=== PATIENT | male | born 1980 | race Caucasian/White ===

== ENCOUNTER 2021-10-16 07:15 | Outpatient (REF) | payer MEDICARE, MEDICAID, SELFPAY ==
--- NOTE | ~2021-10-16 | XR_ITS ---
EXAMINATION: XR knee LT 2V, XR knee standing BI CLINICAL INFORMATION: Reason for Exam M25.569 - Pain in unspecified knee COMPARISON: None available at the time of this dictation. TECHNIQUE: Bilateral frontal standing, left lateral and patella sunrise view. FINDINGS: BONES: No fracture or dislocation is present. JOINTS: Mild narrowing of medial joint spaces suggest mild DJD. There is no joint effusion. No significant osteophytes. SOFT TISSUE: Normal XR/XR knee standing BI IMPRESSION: Mild DJD. Bone alignments are satisfactory. No joint effusion.
--- NOTE | ~2021-10-16 | XR_ITS ---
EXAMINATION: XR knee LT 2V, XR knee standing BI CLINICAL INFORMATION: Reason for Exam M25.569 - Pain in unspecified knee COMPARISON: None available at the time of this dictation. TECHNIQUE: Bilateral frontal standing, left lateral and patella sunrise view. FINDINGS: BONES: No fracture or dislocation is present. JOINTS: Mild narrowing of medial joint spaces suggest mild DJD. There is no joint effusion. No significant osteophytes. SOFT TISSUE: Normal XR/XR knee LT 2V IMPRESSION: Mild DJD. Bone alignments are satisfactory. No joint effusion.
== END 2021-10-16 07:16 | disposition home or self-care (01) ==
LOC: HO.HOSX 07:15
PROVIDERS: Visit Provider Physician Assistant
DX: M23.92 Unspecified internal derangement of left knee (principal)
CPT/HCPCS: 73560; 73565; 99202

== ENCOUNTER 2022-08-13 01:43 | Emergency (ER) | payer MEDICARE, MEDICAID, SELFPAY ==
--- NOTE | ~2022-08-13 | US_ITS ---
EXAMINATION: US VENOUS ULTRASOUND WITH DOPPLER LOWER EXTREMITY, LEFT CLINICAL INFORMATION: Left calf pain, recent trip COMPARISON: None TECHNIQUE: Ultrasound of the deep veins is performed from the hip to the calf with compression sonography and color and pulse Doppler assessment. Spectral analysis with color-flow imaging is performed. FINDINGS: There is normal venous compression and respiratory variation and augmented flow. The visualized common femoral vein, superficial femoral vein, profunda femoral vein, popliteal vein, and the trifurcation region shows no evidence of deep venous thrombosis. There is no significant popliteal fossa cyst. If the patient's symptoms persist, followup ultrasound in 5 days 7 days might be of value to exclude proximal propagation from a non-visualized calf vein. US/US venous duplex LE IMPRESSION: No DVT demonstrated in the left lower extremity.
[2022-08-13 01:57] VITALS: BP 149/100; PULSE 88; RESP 16; TEMP 36.5; O2SAT 98; BMI 27.8
--- NOTE | 2022-08-13 02:15 | ED_ITS ---
HPI - Extremity Problem General Chief complaint: Extremity Problem Stated complaint: leg pain Time Seen by Provider: 08/13/22 02:14 Source: patient Mode of arrival: ambulatory Limitations: no limitations History of Present Illness HPI Narrative: Patient comes to the emergency room complaining of 5 days of worsening left lower extremity/calf pain, questionable mild swelling. Patient states that he recently flew from [place] to [place]. Patient denies any fever or chills. Patient denies any history of DVTs, currently not on blood thinners. Right lower extremity within normal limits. Patient denies any history of trauma. Related Data Home Medications Medication Instructions Recorded Confirmed clonazepam 0.25 mg disintegrating 0.25 mg PO DAILY 10/16/21 tablet fluoxetine 40 mg capsule 40 mg PO DAILY 10/16/21 hydroxyzine pamoate 25 mg capsule 25 mg PO BID PRN 10/16/21 losartan 100 mg tablet 100 mg PO DAILY 10/16/21 oxcarbazepine 600 mg tablet 600 mg PO BID 10/16/21 Previous Rx's Medication Instructions Recorded acetaminophen 500 mg tablet 500 mg PO Q6H PRN fever or pain 08/13/22 #14 tabs cyclobenzaprine 5 mg tablet 5 mg PO TID PRN muscle spasm #10 08/13/22 tabs ibuprofen 600 mg tablet 600 mg PO Q8H PRN fever or pain 08/13/22 #14 tabs Allergies Allergy/AdvReac Type Severity Reaction Status Date / Time No Known Allergies Allergy Verified 08/13/22 02:01 [No Known Allergies*] Review of Systems Review of Systems: Constitutional : No Weight loss, No Fever, No Chills, No Night Sweats, No Fatigue, No Malaise ENT/Mouth : No Hearing loss, No Ear Pain, No Nasal Congestion, No Sinus Pain, No Hoarseness, No sore throat, No Rhinorrhea, No Swallowing Difficulty Eyes: No Eye Pain, No Swelling, No Redness, No Foreign Body, No Discharge, No Vision Changes Cardiovascular : No Chest Pain, No SOB, No Dyspnea on Exertion, No Orthopnea, No Edema, No Palpitations Respiratory : No Cough, No Sputum, No Wheezing, No Smoke Exposure, No Dyspnea Gastrointestinal : No Nausea, No Vomiting, No Diarrhea, No Constipation, No abdominal Pain, No Hematochezia, No Melena Genitourinary : no irregular bleeding, No Dysuria, No Urinary Frequency, No Hematuria, No Urinary Incontinence, No Urgency, No Flank Pain, No Urinary Flow Changes, No Hesitancy Musculoskeletal : No joint pain, complaining of left calf pain for 5 days Skin : No Skin Lesions, No rash Neuro : No Weakness, No Numbness, No Paresthesias, No Loss of Consciousness, No Dizziness, No Headache Psych : No Anxiety/Panic, No Depression, No SI/HI/AH/VH, No Social Issues, Heme/Lymph: No Bruising, No Bleeding,No Lymphadenopathy Endocrine : No Polyuria, No Polydipsia, No Temperature Intolerance [facility] Past Medical History Medical History (Updated 08/13/22 @ 03:11 by Neha Holden MD) Anxiety Hyperlipidemia Hypertension Surgical History History of inguinal hernia repair Social History Social History (Updated 10/16/21 @ 14:26 by Peng Soto) Alcohol intake: current Alcohol intake frequency: a few times a week Smoked in Last 30 Days: No Use of substances other than those prescribed or required for medical reasons: No Advance Directives: No Advance Directives Information Provided: Yes Current occupational status: disabled Current occupation: Lt handed Physical Exam Vital Signs: Vital Signs: Last Vital Signs Temp 98 F 08/13/22 02:16 Pulse 76 08/13/22 02:16 Resp 20 08/13/22 02:16 BP 137/98 H 08/13/22 02:16 Pulse Ox 98 08/13/22 02:16 O2 Del Method 08/13/22 02:16 BMI result Body Mass Index 27.8 Const: Other: Appearance: Alert. Oriented X3. No acute distress. Eyes: Pupils equal, round and reactive to light. ENT: Pharynx normal. Neck: Normal inspection. Neck supple. No lymph nodes noted. No crepitus CVS: Normal heart rate and rhythm. Pulses normal. Normal S1 and S2 Respiratory: No respiratory distress. Breath sounds normal. No Wheezing. No rales Abdomen: Soft and nontender. No rigidity. No distention. Skin: Skin warm and dry. Normal skin color. Normal skin turgor. Extremities: No lower extremity edema. No Lacerations. No Rash, pain to palpation in the left calf, no swelling, no erythema, no additional warmth to touch Neuro: Oriented X 3. No motor deficit. No sensory deficit. Moving all extremities. No slurred speech. CN 2 through 12 grossly intact Psych: calm, cooperative, normal affect Course Course Course Narrative: Likely, patient has musculoskeletal pain. However, patient recently had a flight, pain has been present for 5 days, no history trauma. Ultrasound to rule out DVT pending. Ultrasound is negative for DVT, patient likely having muscle spasms versus mu sculoskeletal pain. Discussed the results with the patient. Patient given 1 dose of p.o. ibuprofen and Tylenol. MDM - Extremity (Nontraumatic) Imaging Data Venous US: Radiologist's impression: FINDINGS: There is normal venous compression and respiratory variation and augmented flow. The visualized common femoral vein, superficial femoral vein, profunda femoral vein, popliteal vein, and the trifurcation region shows no evidence of deep venous thrombosis. There is no significant popliteal fossa cyst. If the patient's symptoms persist, followup ultrasound in 5 days 7 days might be of value to exclude proximal propagation from a non-visualized calf vein. US/US venous duplex LE LT IMPRESSION: No DVT demonstrated in the left lower extremity. Discharge Plan Discharge Clinical Impression: Pain of left calf Patient Disposition: Home, Self-Care Instructions: Musculoskeletal Pain (ED) Additional Instructions: Please follow-up with your primary care physician tomorrow. If you have any worsening or new symptoms, please return to the emergency room or call 911 Prescriptions: New cyclobenzaprine 5 mg tablet 5 mg PO TID PRN (Reason: muscle spasm) Qty: 10 0RF Rx Instructions: Avoid taking medication before driving or going to work acetaminophen 500 mg tablet 500 mg PO Q6H PRN (Reason: fever or pain) Qty: 14 0RF ibuprofen 600 mg tablet 600 mg PO Q8H PRN (Reason: fever or pain) Qty: 14 0RF No Action losartan 100 mg tablet 100 mg PO DAILY hydroxyzine pamoate 25 mg capsule 25 mg PO BID PRN clonazepam 0.25 mg tablet,disintegrating 0.25 mg PO DAILY fluoxetine 40 mg capsule 40 mg PO DAILY oxcarbazepine 600 mg tablet 600 mg PO BID
[2022-08-13 02:16] VITALS: BP 137/98; PULSE 76; RESP 20; TEMP 36.6; O2SAT 98
== END 2022-08-13 03:37 | disposition home or self-care (01) ==
PROVIDERS: Emergency Provider Emergency Medicine; PCP Internal Medicine
DX: M79.605 Pain in left leg (principal); R60.0 Localized edema
CPT/HCPCS: 93971; 99284

== ENCOUNTER 2023-04-17 06:11 | Emergency (ER) | payer MEDICARE, MEDICAID, SELFPAY ==
--- NOTE | ~2023-04-17 | CT_ITS ---
EXAMINATION: CT ABDOMEN AND PELVIS WITHOUT CONTRAST CLINICAL INFORMATION: Left flank pain COMPARISON: 12/01/2016 TECHNIQUE: Multidetector volumetric imaging was performed from the superior aspect of the liver through the pubic symphysis. Sagittal and coronal reformatted images were obtained on the technologist's workstation. This CT examination was performed using dose optimization techniques as appropriate, variously including the following: *Automated exposure control *Adjustment of mA and/or kV according to patient size (this includes techniques or standardized protocols for targeted exams where dose is matched to indication/reason for exam; i.e. extremities or head) *Use of iterative reconstruction technique DLP: 770 mGy-cm FINDINGS: LUNG BASES: The visualized lung bases are unremarkable. LIVER, GALLBLADDER, AND BILIARY TREE: The liver is normal in size, shape, and attenuation. No focal hepatic lesion or biliary ductal dilatation is present. The gallbladder is unremarkable with no evidence of radiopaque gallstones, gallbladder wall thickening, or obvious pericholecystic inflammatory changes. PANCREAS: Unremarkable. SPLEEN: Unremarkable. ADRENAL GLANDS: Unremarkable. KIDNEYS AND URETERS: The kidneys are normal in size, shape, and attenuation. No hydronephrosis, hydroureter, or calculi seen. No perinephric stranding. BLADDER: Unremarkable. GASTROINTESTINAL TRACT: The small and large bowel are unremarkable. The appendix is unremarkable. ABDOMINAL WALL: No significant hernia is appreciated. LYMPH NODES: Normal. VASCULAR: Unremarkable. PELVIC VISCERA: Unremarkable. OSSEOUS STRUCTURES: Unremarkable. CT/CT abdomen pelvis wo IV con IMPRESSION: No significant abnormality. No hydronephrosis, renal or ureteral calculi. Fleischner guidelines were followed.
[2023-04-17 06:28] VITALS: BP 158/103; PULSE 73; RESP 20; TEMP 36.6; O2SAT 96; BMI 28.4
--- NOTE | 2023-04-17 06:37 | ED_ITS ---
HPI - General Adult General Chief complaint: Abdominal Pain Stated complaint: left sided pain Time Seen by Provider: 04/17/23 06:30 Source: patient Mode of arrival: ambulatory Limitations: no limitations History of Present Illness HPI narrative: Patient is a 43 year old assigned male at with a history of HTN, HLD, and anxiety presenting to the emergency department today with left lower quadrant abdominal pain and left sided flank pain. Patient states that over the last week he has had left lower quadrant abdominal pain and left flank pain. 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 Patient denies a ny dizziness, lightheadedness, nausea, vomiting, fever, chills, blurry vision, double vision, loss of vision, chest pain, difficulty breathing, shortness of breath, back pain, night sweats, pain with urination, increased urinary frequency, increased urinary urgency, blood in his urine or stool, syncope or a near syncopal episode, recent trauma or falls, bowel incontinence, bladder incontinence, bowel retention, bladder retention, or any other complaints at this time. Onset (ago): week(s) (1) Location: abdomen and left Severity: mild Severity scale (1-10): 3 Quality: aching and dull Relieving factors: none Exacerbating factors: movement Associated symptoms: denies other symptoms Treatments prior to arrival: none Related Data Home Medications Medication Instructions Recorded Confirmed clonazepam 0.25 mg disintegrating 0.25 mg PO DAILY 10/16/21 tablet fluoxetine 40 mg capsule 40 mg PO DAILY 10/16/21 hydroxyzine pamoate 25 mg capsule 25 mg PO BID PRN 10/16/21 losartan 100 mg tablet 100 mg PO DAILY 10/16/21 oxcarbazepine 600 mg tablet 600 mg PO BID 10/16/21 Previous Rx's Medication Instructions Recorded acetaminophen 500 mg tablet 500 mg PO Q6H PRN fever or pain 08/13/22 #14 tabs cyclobenzaprine 5 mg tablet 5 mg PO TID PRN muscle spasm #10 08/13/22 tabs ibuprofen 600 mg tablet 600 mg PO Q8H PRN fever or pain 08/13/22 #14 tabs cyclobenzaprine 5 mg tablet 5 mg PO TID PRN muscle spasm 7 04/17/23 days #21 tabs Allergies Allergy/AdvReac Type Severity Reaction Status Date / Time No Known Allergies Allergy Verified 08/13/22 02:01 [No Known Allergies*] Review of Systems Constitutional: Constitutional: Reports no additional constitutional complaints, Denies chills, Denies fever(s) and Denies night sweats Eyes: Eyes: Reports no additional eye complaints, Denies blurry vision, Denies change in vision, Denies diplopia, Denies eye discharge, Denies loss of vision and Denies eye pain ENT: Denies dizziness Cardiovascular: Cardiovascular: Reports no additional cardiovascular complaints, Denies chest pain, Denies lightheadedness, Denies Loss of Conscio usness and Denies dyspnea Respiratory: Respiratory: Reports no additional respiratory complaints and Denies dyspnea Gastrointestinal: Gastrointestinal: Reports no additional gastrointestinal c omplaints, Reports abdominal pain, Denies melena, Denies hematochezia, Denies change in bowel habits and Denies change in stool character Genitourinary: Genitourinary: Reports no additional male genitourinary complaints, Denies hematuria, Denies oliguria, Denies difficulty urinating, Denies dysuria, Reports flank pain, Denies urinary frequency, Denies urinary hesitancy, Denies urinary incontinence and Denies urinary urgency Musculoskeletal: Musculoskeletal: Reports no additional musculoskeletal complaints, Denies numbness and Denies tingling Neurologic: Denies dizziness, Denies loss of vision, Denies numbness and Denies tingling Psychiatric: Psychiatric: Reports no additional psychiatric complaints Endocrine: Endocrine: Reports no additional endocrine complaints Hematologic/Lymphatic: Hematologic/Lymphatic: Reports no additional hematologic/lymphatic complaints Allergic/Immunologic: Allergic/Immunologic: Reports no additional allerg ic/immunologic complaints [facility] Past Medical History Attestation statement: The following information was validated with the patient. Source: old records reviewed and nursing notes reviewed Medical History Anxiety Hyperlipidemia Hypertension Surgical History History of inguinal hernia repair Social History Social History Alcohol intake: current Alcohol intake frequency: a few times a week Advance Directives: No Advance Directives Information Provided: No Current occupational status: disabled Current occupation: Lt handed Physical Exam ED Vital Signs: Vital Signs - 24 hr 04/17/23 06:28 04/17/23 08:26 Temperature 97.8 F 97.9 F Pulse Rate 73 65 Respiratory Rate 20 15 Blood Pressure 158/103 H 139/100 H Pulse Oximetry 96 97 Oxygen Delivery Method Room Air Room Air BMI result Body Mass Index 28.4 Const General: cooperative, no acute distress, alert and awake Nutritional Appearance: well nourished Orientation/consciousness: patient oriented x3 Limitations: no limitations HENMT Head: Yes normal to inspection and Yes atraumatic Ears: hearing grossly normal bilaterally and external ears normal General nose exam: Normal external nose present, no nasal discharge noted and no epistaxis Face and sinus: Yes normal facial exam, No abrasion and No laceration Mouth: Normal oral and palatal mucosa present, no drooling and no muffled voice Eyes General: appearance normal, both eyes and all related structures Periorbital: periorbital findings normal Eyelids: Yes eyelids normal Conjunctivae: conjunctivae normal Pupils: Equal, round and reactive pupils present EOM: EOMs intact bilaterally Neck Neck: Yes normal visual inspection, Yes full ROM and Yes no lymphadenopathy Chest Chest palpation & inspection: normal inspection of the chest Resp Effort & Inspection: normal respiratory effort and able to speak in complete sentences GI Inspection: Yes normal to inspection Palpation (GI): Soft to palpation, not firm, nontender and no guarding Neuro General: patient oriented x3 and moves all extremities Cranial nerves: Yes Equal, round and reactive pupils present Cognition (Neuro): normal cognition Motor exam (neuro): 5/5 motor strength present throughout Sensory Exam: Normal double simultaneous stimulation for sensation Coordination: [id number] test normal Extrem General: Yes normal to inspection, Yes full ROM and Yes capillary refill normal Psych Appearance: grossly normal Mental Status: mental status grossly normal Affect: normal affect Attitude: cooperative Thought process: Normal thought process present Thought content: Normal thought content present Insight: Good insight present (Psych) Medical Decision Making Medical Decision Making MDM Narrative: Patient is a 43 year old assigned male at with a history of anxiety, HTN, and HLD presenting to the emergency department today with left lower quadrant abdominal pain and left flank pain. Patient's physical exam was unremarkable. Patient's blood work was unremarkable. Patient's urine showed no acute process. Patient's abdomen/pelvis CT showed no acute process. Patient's clinical presentation is most consistent with a musculoskeletal pain. I explained my physical exam findings as well as all test results to the patient. I answered all questions asked by the patient. I stressed the importance of the patient taking his medication as prescribed. I stressed the importance of the patient following up with his primary care provider. I stressed the importance of the patient returning to the emergency department immediately if his symptoms were to worsen or if he were to develop any dizziness, shortness of breath, difficulty breathing, chest pain, blurry vision, loss of vision, nausea, vomiting, abdominal pain, fever, chills, back pain, or any other complaints. Patient verbalized agreement and understanding with this treatment plan and discharge. Differential Diagnosis Differential Diagnoses: The differential diagnosis associated with the pr esentation includes Musculoskeletal pain Kidney stones Abdominal pain Hernia Diverticulitis Admission/Observation Consideration of admission/observation: Escalation of care including admission/observation considered Patient would have been admitted to the hospital had his work up had any findings where hospital admission was appropriate and his clinical presentation warranted hospital admission. Lab Data MDM Lab Attestation statement: I reviewed the patient's lab results. My interpretation of these studies and their corresponding values is that they are grossly normal. 04/17/23 06:40 04/17/23 06:40 Labs: Lab Results 04/17/23 04/17/23 04/17/23 Range/Units 06:40 06:40 07:48 WBC 6.9 (4.8-10.8) X10*3/uL RBC 4.48 L (4.60-5.80) X10*6/uL Hgb 13.6 L (14.0-18.0) g/dl Hct 40.4 L (42.0-52.0) % MCV 90.2 (80.0-98.0) fL MCH 30.4 (27.0-33.0) pg MCHC 33.7 (31.0-36.0) g/dl RDW 11.9 (11.0-16.0) % Plt Count 553 H (160-400) X10*3/uL MPV 9.0 L (9.4-12.4) fL Absolute Nucleated RBC 0.000 (0.0-0.012) X10*3/uL Nucleated RBC % (auto) 0.0 (0.0-0.2) /100WBC Sodium 143 (135-145) mmol/L Potassium 3.6 (3.3-5.1) mmol/L Chloride 108 (96-108) mmol/L Carbon Dioxide 23 (22-29) mmol/L Anion Gap 16 (12-20) BUN 16 (9-16) mg/dL Creatinine 0.91 (0.5-1.4) mg/dL Estim Creat Clear Calc 119.0 Estimated GFR > 60 Random Glucose 93 (60-115) mg/dL Calcium 9.4 (8.4-10.2) mg/dL Total Bilirubin 0.4 (0.0-1.0) mg/dL AST 23 (5-37) U/L ALT 25 (0-40) U/L Alkaline Phosphatase 46 (39-117) U/L Total Protein 7.4 (6.5-8.0) g/dL Albumin 4.2 (3.5-5.0) g/dL Lipase 13 (8-78) U/L Urine Color Yellow Urine Appearance Cloudy Urine pH 5.5 (5.0-9.0) Ur Specific [place] >= 1.030 H (1.005-1.025) Urine Protein Negative (Neg-Trace) mg/dL Urine Glucose (UA) Negative (Negative) mg/dL Urine Ketones Negative (Negative) mg/dL Urine Blood Negative (Negative) Urine Nitrite Negative (Negative) Ur Leukocyte Esterase Negative (Negative) Independent Interpretation I performed an independent interpretation of an: CT Scan Interpretation: My interpretation is in agreement with the radiologist's impression of this imaging study. ------ EXAMINATION: CT ABDOMEN AND PELVIS WITHOUT CONTRAST? CLINICAL INFORMATION: Left flank pain? COMPARISON: 12/01/2016 TECHNIQUE: Multidetector volumetric imaging was performed from the superior aspect of the liver through the pubic symphysis. Sagittal and coronal reformatted images were obtained on the technologist's workstation.? This CT examination was performed using dose optimization techniques as appropriate, variously including the following: *Automated exposure control *Adjustment of mA and/or kV according to patient size (this includes techniques or standardized protocols for targeted exams where dose is matched to indication/reason for exam; i.e. extremities or head) *Use of iterative reconstruction technique DLP: 770 mGy-cm FINDINGS: LUNG BASES: The visualized lung bases are unremarkable.? LIVER, GALLBLADDER, AND BILIARY TREE: The liver is normal in size, shape, and attenuation. No focal hepatic lesion or biliary ductal dilatation is present. The gallbladder is unremarkable with no evidence of radiopaque gallstones, gallbladder wall thickening, or obvious pericholecystic inflammatory changes.? PANCREAS: Unremarkable.? SPLEEN: Unremarkable.? ADRENAL GLANDS: Unremarkable.? KIDNEYS AND URETERS: The kidneys are normal in size, shape, and attenuation. No hydronephrosis, hydroureter, or calculi seen. No perinephric stranding. ? BLADDER: Unremarkable.? GASTROINTESTINAL TRACT: The small and large bowel are unremarkable. The appendix is unremarkable.? ABDOMINAL WALL: No significant hernia is appreciated.? LYMPH NODES: Normal. VASCULAR: Unremarkable. PELVIC VISCERA: Unremarkable.? OSSEOUS STRUCTURES: Unremarkable.? CT/CT abdomen pelvis wo IV con IMPRESSION: No significant abnormality. No hydronephrosis, renal or ureteral calculi.? ? Fleischner guidelines were followed. Dictated By: Jian Colvin MD Signed By: Electronically signed by Jian Colvin MD 04/17/23 2852 Radiology Impression Discussion of test interpretation with radiology: I have reviewed the radiologist's reading. Prescription Management I considered prescription management with: Pain Medication (patient prescribed pain medication.) Chronic Conditions Patient?s care impacted by: Hypertension Discharge Plan Discharge Clinical Impression: Abdominal pain Patient Disposition: Home, Self-Care Instructions: Abdominal Pain (ED) Additional Instructions: Follow up with your primary care provider. Return to the emergency department immediately if your symptoms worsen or if you develop any dizziness, shortness of breath, difficulty breathing, chest pain, blurry vision, loss of vision, nausea, vomiting, abdominal pain, fever, chills, back pain, or any other complaints. Prescriptions: New cyclobenzaprine 5 mg tablet 5 mg PO TID PRN (Reason: muscle spasm) 7 Days Qty: 21 0RF No Action cyclobenzaprine 5 mg tablet 5 mg PO TID PRN (Reason: muscle spasm) Qty: 10 0RF Rx Instructions: Avoid taking medication before driving or going to work acetaminophen 500 mg tablet 500 mg PO Q6H PRN (Reason: fever or pain) Qty: 14 0RF ibuprofen 600 mg tablet 600 mg PO Q8H PRN (Reason: fever or pain) Qty: 14 0RF losartan 100 mg tablet 100 mg PO DAILY hydroxyzine pamoate 25 mg capsule 25 mg PO BID PRN clonazepam 0.25 mg tablet,disintegrating 0.25 mg PO DAILY fluoxetine 40 mg capsule 40 mg PO DAILY oxcarbazepine 600 mg tablet 600 mg PO BID Referrals: Honey Kaba MD [Primary Care Provider] - Print Language: Vincentian
[2023-04-17 06:51] LABS: Hematocrit 40.4 % (42.0-52.0); Hemoglobin 13.6 g/dl (14.0-18.0); Mean Corpuscular HGB Conc 33.7 g/dl (31.0-36.0); Mean Corpuscular Hemoglobin 30.4 pg (27.0-33.0); Mean Corpuscular Volume 90.2 fL (80.0-98.0); Platelet Count 553 X10*3/uL (160-400); Red Blood Count 4.48 X10*6/uL (4.60-5.80); Red Cell Distribution Width 11.9 % (11.0-16.0); White Blood Count 6.9 X10*3/uL (4.8-10.8)
[2023-04-17 07:07] LABS: Alanine Aminotransferase 25 U/L (0-40); Albumin Level 4.2 g/dL (3.5-5.0); Alkaline Phosphatase 46 U/L (39-117); Anion Gap 16 (12-20); Aspartate Amino Transferase 23 U/L (5-37); Bilirubin Total 0.4 mg/dL (0.0-1.0); Blood Urea Nitrogen 16 mg/dL (9-16); Calcium 9.4 mg/dL (8.4-10.2); Carbon Dioxide 23 mmol/L (22-29); Chloride 108 mmol/L (96-108); Estimated Glomerular Filt Rate > 60; Glucose Random 93 mg/dL (60-115); Lipase 13 U/L (8-78); Potassium 3.6 mmol/L (3.3-5.1); Sodium 143 mmol/L (135-145); Total Protein 7.4 g/dL (6.5-8.0)
[2023-04-17 07:56] LABS: Appearance Urine Cloudy; Color Urine Yellow; Glucose Urine UA Negative (Negative); Leukocyte Esterase Urine Negative (Negative); Nitrite Urine Negative (Negative); PH 5.5 (5.0-9.0); Specific Gravity - Urine >= 1.030 (1.005-1.025); Urine Blood Negative (Negative); Urine Ketones Negative (Negative); Urine Protein Negative (Neg-Trace)
[2023-04-17 08:26] VITALS: BP 139/100; PULSE 65; RESP 15; TEMP 36.6; O2SAT 97
== END 2023-04-17 08:42 | disposition home or self-care (01) ==
PROVIDERS: Emergency Provider Emergency Medicine; PCP Internal Medicine
DX: R10.2 Pelvic and perineal pain (principal); R10.32 Left lower quadrant pain; Z79.899 Other long term (current) drug therapy
CPT/HCPCS: 36415; 74176; 80053; 81003; 83690; 85027; 99283; 99284

== ENCOUNTER 2024-09-14 22:33 | Inpatient (IN) | payer MEDICARE, MEDICAID, SELFPAY ==
--- NOTE | ~2024-09-14 | CT_ITS ---
CLINICAL HISTORY: Upper abdominal pain etiology??? CT abdomen and pelvis with contrast Comparison: CT - CT ABDOMEN PELVIS W IV CON - 09/15/24 00:55 EST Findings: The lung bases are clear. The liver, gallbladder, spleen, pancreas, kidneys and adrenal glands are normal in appearance. No bowel obstruction, pneumoperitoneum, or pneumatosis. The appendix is enlarged and there is periappendiceal stranding. Appendiceal diameter measures 10 mm. No definite evidence of perforation. No abscess. The bones are intact. IMPRESSION: Acute appendicitis without definite evidence of perforation. This document has been electronically signed by: Erickson Davenport MD on 09/15/2024 01:55:11
[2024-09-14 22:37] VITALS: BP 118/70; PULSE 74; RESP 16; TEMP 36.6; O2SAT 95; BMI 29.3
[2024-09-14 23:03] VITALS: BP 119/71; PULSE 59; RESP 18; TEMP 36.6; O2SAT 97
[2024-09-14 23:13] LABS: Basophils Absolute Auto 0.1 X10*3/uL (0.0-0.2); Basophils Percent Auto 0.7 % (0-2); Eosinophils Percent Auto 0.2 % (0-4); Hematocrit 39.2 % (42.0-52.0); Hemoglobin 13.9 g/dl (14.0-18.0); Imm Gran Abs Auto 0.07 X10*3/uL (0.00-0.03); Imm Gran Pct Auto 0.5 % (0.0-0.4); Lymphocytes Absolute Auto 0.7 X10*3/uL (1.2-4.9); MANUAL DIFF FLAG SCAN; Mean Corpuscular HGB Conc 35.5 g/dl (31.0-36.0); Mean Corpuscular Hemoglobin 31.4 pg (27.0-33.0); Mean Corpuscular Volume 88.5 fL (80.0-98.0); Mean Platelet Volume 9.4 fL (9.4-12.4); Monocytes Absolute Auto 0.4 X10*3/uL (0.1-1.2); Monocytes Percent Auto 2.9 % (2-11); Neutrophils Absolute Auto 12.1 x10*3/uL (2.0-8.3); Neutrophils Percent Auto 90.7 % (45-73); Platelet Count 559 X10*3/uL (160-400); Red Blood Count 4.43 X10*6/uL (4.60-5.80); Red Cell Distribution Width 12.5 % (11.0-16.0); SCAN SMEAR FLAG 1; White Blood Count 13.3 X10*3/uL (4.8-10.8)
[2024-09-14 23:23] LABS: SLIDE REVIEW VERIFIED
[2024-09-14 23:35] LABS: Alanine Aminotransferase 24 U/L (0-40); Albumin Level 4.2 g/dL (3.5-5.0); Alkaline Phosphatase 52 U/L (39-117); Anion Gap 17 (12-20); Aspartate Amino Transferase 30 U/L (5-37); Bilirubin Total 0.7 mg/dL (0.0-1.0); Blood Urea Nitrogen 19 mg/dL (9-16); Calcium 9.3 mg/dL (8.4-10.2); Carbon Dioxide 23 mmol/L (22-29); Chloride 106 mmol/L (96-108); Creatinine Clr Calc Pharmacy 123.5; Estimated Glomerular Filt Rate > 60; Glucose Random 137 mg/dL (60-115); Lipase 11 U/L (8-78); Potassium 4.2 mmol/L (3.3-5.1); Sodium 142 mmol/L (135-145); Total Protein 7.7 g/dL (6.5-8.0)
[2024-09-14 23:45] LABS: Appearance Urine Clear; Color Urine Dark Yellow; Glucose Urine UA Negative (Negative); Leukocyte Esterase Urine Negative (Negative); Nitrite Urine Negative (Negative); PH 6.5 (5.0-9.0); Specific Gravity - Urine >= 1.030 (1.005-1.025); Urine Blood Negative (Negative); Urine Ketones Trace mg/dL (Negative); Urine Protein Trace mg/dL (Neg-Trace)
[2024-09-14 23:53] LABS: Influenza A PCR NEGATIVE (Negative); Influenza B PCR NEGATIVE (Negative); Resp Syncy Virus RNA Qual PCR NEGATIVE (Negative); SARS COV2 PCR INHOUSE NEGATIVE (Negative)
[2024-09-15] VITALS (13 sets, daily range): BP systolic 104–126; BP diastolic 64–87; PULSE 76–100; RESP 12–20; TEMP 36.1–37.1; O2SAT 93–96; BMI 31.3
--- NOTE | 2024-09-15 | ED.ABDPAIN ---
HPI - Abdominal Pain General Chief Complaint: Abdominal Pain Stated Complaint: Abdominal pain Time Seen by Provider: 09/14/24 23:30 Source: patient Mode of arrival: ambulatory Limitations: no limitations History of Present Illness ED Provider: HPI narrative: Patient with no significant abdominal complaints in the past does have history of hypotension hyperlipidemia anxiety comes here for acute onset of epigastric pain since 4pm associated with nausea and vomiting vomited about 3 times pain is localized in epigastric area no radiation of the pain had loose bowels earlier today no history of pancreatitis no history of gastritis Related Data Home Medications ?Medication ?Instructions ?Recorded ?Confirmed clonazepam 0.25 mg disintegrating 0.25 mg PO DAILY 10/16/21 tablet fluoxetine 40 mg capsule 40 mg PO DAILY 10/16/21 hydroxyzine pamoate 25 mg capsule 25 mg PO BID PRN 10/16/21 losartan 100 mg tablet 100 mg PO DAILY 10/16/21 oxcarbazepine 600 mg tablet 600 mg PO BID 10/16/21 Previous Rx's ?Medication ?Instructions ?Recorded acetaminophen 500 mg tablet 500 mg PO Q6H PRN fever or pain 08/13/22 #14 tabs cyclobenzaprine 5 mg tablet 5 mg PO TID PRN muscle spasm #10 08/13/22 tabs ibuprofen 600 mg tablet 600 mg PO Q8H PRN fever or pain 08/13/22 #14 tabs cyclobenzaprine 5 mg tablet 5 mg PO TID PRN muscle spasm 7 04/17/23 days #21 tabs Allergies Allergy/AdvReac Type Severity Reaction Status Date / Time No Known Allergies Allergy Verified 09/14/24 22:39 [No Known Allergies*] Review of Systems Review of Systems Yes all other systems are reviewed and are negative PMFSH Past Medical History Medical History Anxiety Hypertension Hyperlipidemia Surgical History History of inguinal hernia repair Social History Social History Alcohol intake: current Alcohol intake frequency: a few times a week Smoked in Last 30 Days: No Use of substances other than those prescribed or required for medical reasons: No Advance Directives: No Current occupational status: disabled Current occupation: Lt handed Physical Exam ED Vital Signs: Vital Signs - 24 hr 09/14/24 22:37 09/14/24 23:03 Temperature 97.9 F 97.9 F Pulse Rate 74 59 Respiratory Rate 16 18 Blood Pressure 118/70 119/71 Pulse Oximetry 95 97 Oxygen Delivery Method Room Air Room Air BMI result Body Mass Index 29.3 Appearance: Alert. Oriented X3. No acute distress. Eyes: No pallor or icterus ENT: Pharynx normal. Oral Mucosa moist Neck: Normal inspection. Neck supple. CVS: Normal heart rate and rhythm. Pulses normal. Respiratory: No respiratory distress. Equal air entry bilateral, no wheezing/rales/rhonchi Abdomen: Soft and tenderness in epigastric area with guarding. Bowel sounds are present, no mass palpable, no CVA tenderness Skin: Skin warm and dry. Normal skin color. Normal skin turgor. Extremities: No lower extremity edema. No calf tenderness Neuro: Oriented X 3. No motor deficit. Medical Decision Making Medical Decision Making MDM Narrative: Patient has epigastric pain with no prior history of gastric ulcer gallstones etiology not clear will get CT scan to rule out gallstones CBD stone or pancreatitis early appendicitis Patient's CT scan showed acute appendicitis uncomplicated patient does not have any tenderness in the right lower quadrant will let Dr. Tse know Differential Diagnosis Differential Diagnoses: The differential diagnosis associated with the presentation includes Pancreatitis/CBD stone/gallstones/gastritis/appendicitis Admission/Observation Consideration of admission/observation: Escalation of care including admission/observation considered Consult Healthcare Provider Management of the patient was discussed with: [employer] Dr. Tse surgeon Lab Data MDM Lab Attestation statement: I reviewed the patient's lab results. 09/14/24 23:00 09/14/24 23:00 Labs: Lab Results 09/14/24 09/14/24 Range/Units 23:00 23:39 WBC 13.3 H (4.8-10.8) X10*3/uL RBC 4.43 L (4.60-5.80) X10*6/uL Hgb 13.9 L (14.0-18.0) g/dl Hct 39.2 L (42.0-52.0) % MCV 88.5 (80.0-98.0) fL MCH 31.4 (27.0-33.0) pg MCHC 35.5 (31.0-36.0) g/dl RDW 12.5 (11.0-16.0) % Plt Count 559 H (160-400) X10*3/uL MPV 9.4 (9.4-12.4) fL Immature Gran % (Auto) 0.5 H (0.0-0.4) % Neut % (Auto) 90.7 H (45-73) % Lymph % (Auto) 5.0 L (20-40) % [place] % (Auto) 2.9 (2-11) % Eos % (Auto) 0.2 (0-4) % Baso % (Auto) 0.7 (0-2) % Lymph # (Auto) 0.7 L (1.2-4.9) X10*3/uL [place] # (Auto) 0.4 (0.1-1.2) X10*3/uL Eos # (Auto) 0.0 (0.0-0.4) X10*3/uL Baso # (Auto) 0.1 (0.0-0.2) X10*3/uL Abs Immat Gran (auto) 0.07 H (0.00-0.03) X10*3/uL Absolute Neuts (auto) 12.1 H (2.0-8.3) x10*3/uL Absolute Nucleated RBC 0.000 (0.0-0.012) X10*3/uL Nucleated RBC % (auto) 0.0 (0.0-0.2) /100WBC Smear Tech's Comments VERIFIED Sodium 142 (135-145) mmol/L Potassium 4.2 (3.3-5.1) mmol/L Chloride 106 (96-108) mmol/L Carbon Dioxide 23 (22-29) mmol/L Anion Gap 17 (12-20) BUN 19 H (9-16) mg/dL Creatinine 0.88 (0.5-1.4) mg/dL Estim Creat Clear Calc 123.5 Estimated GFR > 60 Random Glucose 137 H (60-115) mg/dL Calcium 9.3 (8.4-10.2) mg/dL Total Bilirubin 0.7 (0.0-1.0) mg/dL AST 30 (5-37) U/L ALT 24 (0-40) U/L Alkaline Phosphatase 52 (39-117) U/L Total Protein 7.7 (6.5-8.0) g/dL Albumin 4.2 (3.5-5.0) g/dL Lipase 11 (8-78) U/L Urine Color Dark Yellow Urine Appearance Clear Urine pH 6.5 (5.0-9.0) Ur Specific [place] >= 1.030 H (1.005-1.025) Urine Protein Trace (Neg-Trace) mg/dL Urine Glucose (UA) Negative (Negative) mg/dL Urine Ketones Trace (Negative) mg/dL Urine Blood Negative (Negative) Urine Nitrite Negative (Negative) Ur Leukocyte Esterase Negative (Negative) Influenza Type A (PCR) NEGATIVE (Negative) Influenza Type B (PCR) NEGATIVE (Negative) RSV RNA Qual (PCR) NEGATIVE (Negative) SARS-CoV-2 RNA (RT-PCR) NEGATIVE (Negative) Independent Interpretation I performed an independent interpretation of an: CT Scan Radiology Impression Discussion of test interpretation with radiology: I have reviewed the radiologist's reading. Radiologist Impression: [place] [id number] CT Scan Report Signed with Addenda Patient: Alexander Garay MR#: [id number] : 1980 Acct:[id number] Age/Sex: 44 / M ADM Date: 09/14/24 Loc: .ED Attending Dr: Ordering Physician: David Sterling MD Date of Service: 09/15/24 Procedure(s): CT abdomen pelvis w IV con Accession Number(s): [id number] cc: Honey Kaba MD; David Sterling MD~ Report Number: [id number]: Total DLP = 740.00 mGy-cm ADDENDUMThis document has been electronically signed by: Erickson Davenport MD on 09/15/2024 01:55:11 ADDENDUM: This report was discussed with Hallie Melo on Sep 15, 2024 02:00:00 EST. This document has been electronically signed by: Ashlee Richey on 09/15/2024 02:00:40 Addendum Dictated By: Erickson Davenport MD Addendum Signed By: <Electronically signed by Erickson Davenport MD in [place]> 09/15/24200 Addendum Cosigned By: DD/ /09/154 TD/TT: 09/15/2410/09/199 CLINICAL HISTORY: Upper abdominal pain etiology??? CT abdomen and pelvis with contrast Comparison: CT - CT ABDOMEN PELVIS W IV CON - 09/15/24 00:55 EST Findings: The lung bases are clear. The liver, gallbladder, spleen, pancreas, kidneys and adrenal glands are normal in appearance. No bowel obstruction, pneumoperitoneum, or pneumatosis. The appendix is enlarged and there is periappendiceal stranding. Appendiceal diameter measures 10 mm. No definite evidence of perforation. No abscess. The bones are intact. IMPRESSION: Acute appendicitis without definite evidence of perforation. This document has been electronically signed by: Erickson Davenport MD on 09/15/2024 01:55:11 Medications Administered Discontinued Medications Generic Name Dose Route Start Last Admin Trade Name Freq PRN Reason Stop Dose Admin Al Hydroxide/Mg Hydroxide 30 ml 09/15/24 00:12 09/15/24 00:30 Magnesium Hydrox/Alum Hydrox 30 Ml Oral.Susp PO 09/15/24 00:13 30 ml ONCE ONE Administration Famotidine 20 mg 09/15/24 00:12 09/15/24 00:30 Famotidine/Pf 20 Mg/2 Ml Vial IVPUSH 09/15/24 00:13 20 mg ONCE ONE Administration Sodium Chloride 1,000 mls @ 999 mls/hr 09/15/24 00:05 09/15/24 00:30 Ns IV 09/15/24 01:05 999 mls/hr .Q1H1M ONE Administration Iohexol 85 ml 09/15/24 01:10 09/15/24 01:10 Iohexol 350 Mg/Ml 100 Ml Infus..Btl IV 09/15/24 01:11 85 ml ONCE ONE Administration Morphine Sulfate 4 mg 09/15/24 00:10 09/15/24 00:30 Morphine Sulfate 4 Mg/Ml Cartridge IVPUSH 09/15/24 00:11 4 mg ONCE ONE Administration Protocol Ondansetron HCl 4 mg 09/15/24 00:10 09/15/24 00:30 Ondansetron Hcl 4 Mg/2 Ml Vial IVPUSH 09/15/24 00:11 4 mg ONCE ONE Administration Discharge Plan Discharge Clinical Impression: Acute appendicitis Patient Disposition: Admitted As Inpatient Print Language: Marshallese
[2024-09-15] MEDS: Morphine Sulfate 4 MG/ML CARTRIDGE IVPUSH (00:30)
[2024-09-15] MEDS: Magnesium Hydrox/Alum Hydrox 30 ML ORAL.SUSP PO ×2 (00:30→15:58)
[2024-09-15] MEDS: 0.9 % Sodium Chloride 1,000 ML 999 ML IV (00:30)
[2024-09-15] MEDS: ondansetron HCL 4 MG/2 ML VIAL IVPUSH (00:30)
[2024-09-15] MEDS: Famotidine/PF 20 MG/2 ML VIAL IVPUSH (00:30)
[2024-09-15] MEDS: iohexoL 350 MG/ML 100 ML INFUS..BTL 85 ML IV (01:10)
[2024-09-15] MEDS: Piperacillin Sodium/Tazobactam 3.375 GM in 0.9 % Sodium Chloride 50 ML IV ×4 (02:14→19:34)
--- NOTE | 2024-09-15 03:23 | P.HPGS_ITS ---
History of Present Illness History of Present Illness Date of Service: 09/17/24 Chief complaint: acute appendicitis Narrative: Alexander Garay is a 44 year old male here in the ER for abdominal pain. He says that he had breakfast this morning and right after that, he started to have multiple episodes of loose stools. He says he had some periumbilical pain which persisted throughout the day. He also had some nausea and vomiting. Because of all these symptoms, he came to the emergency room. He denies any fever or chills He has a history of hypertension and anxiety/depression. He has a history of right inguinal hernia repair more than 20 years ago. He also had surgery for gynecomastia around that time as well. Review of Systems Constitutional: Constitutional: Denies chills and Denies fever(s) Cardiovascular: Cardiovascular: Denies chest pain, Denies dyspnea and Denies dyspnea on exertion Respiratory: Respiratory: Denies cough, Denies dyspnea and Denies dyspnea on exertion Gastrointestinal: Gastrointestinal: Denies hematochezia, Denies change in bowel habits and Reports vomiting Genitourinary: Genitourinary: Denies hematuria and Denies difficulty urinating Musculoskeletal: Musculoskeletal: Denies back pain and Denies limited range of motion Neurologic: Denies focal weakness and Denies convulsions Psychiatric: Psychiatric: Reports anxiety, Reports depression and Denies mood swings PMFSH Past Medical History Medical History Anxiety Hypertension Hyperlipidemia Surgical History Surgical History History of inguinal hernia repair Social History Social History Household Members: Spouse Housing: Apartment Alcohol intake: current Alcohol intake frequency: a few times a week Patient Tobacco Use Status: Former Tobacco user Tobacco use type: Cigarette Smoked in Last 30 Days: No Use of substances other than those prescribed or required for medical reasons: No Currently Displaying Signs/Symptoms of Drug Intoxication Withdrawal: No Do you feel safe in your current relationship?: Yes Advance Directives: No Advance Directives Information Provided: No Do you have a plan to hurt others: No Plan Recently lost weight without trying: No Nutrition Risks: No Nutritional Risk service: No Current occupational status: disabled Current occupation: Lt handed Meds Allergies Allergy/AdvReac Type Severity Reaction Status Date / Time No Known Allergies Allergy Verified 09/14/24 22:39 [No Known Allergies*] Home Medications ?Medication ?Instructions ?Recorded ?Confirmed ?Last Taken ?Type fluoxetine 40 mg capsule 40 mg PO DAILY 10/16/21 09/15/24 Unknown History hydroxyzine pamoate 25 mg capsule 25 mg PO TID PRN Anxiety 10/16/21 09/15/24 Unknown History clonazepam 0.5 mg tablet 0.5 mg PO TID PRN Anxiety 09/15/24 09/15/24 Unknown History fenofibrate 160 mg tablet 160 mg PO DAILY 09/15/24 09/15/24 Unknown History losartan 100 1 tab PO DAILY 09/15/24 09/15/24 Unknown History mg-hydrochlorothiazide 12.5 mg tablet Physical Exam Vital Signs: Vital Signs: Last Vital Signs Temp 98.4 F 09/15/24 02:25 Pulse 96 09/15/24 02:25 Resp 18 09/15/24 02:25 BP 125/85 09/15/24 02:25 Pulse Ox 96 09/15/24 02:25 O2 Del Method Room Air 09/15/24 02:25 BMI result Body Mass Index 29.3 Const: General: comfortable and no acute distress Orientation/consciousness: patient oriented x3 Neck: Neck: Yes no lymphadenopathy Resp: Auscultation: clear to auscultation bilaterally Cardio: Rhythm: regular rhythm GI: Other: Mild tenderness on lower abdomen Palpation (GI): Soft to palpation, nontender and no guarding Neuro: General: patient oriented x3 Results Results Labs: Short CBC 09/14/24 Range/Units 23:00 WBC 13.3 H (4.8-10.8) X10*3/uL Hgb 13.9 L (14.0-18.0) g/dl Hct 39.2 L (42.0-52.0) % Plt Count 559 H (160-400) X10*3/uL BMP 09/14/24 23:00 Sodium 142 Potassium 4.2 Chloride 106 Carbon Dioxide 23 BUN 19 H Creatinine 0.88 Calcium 9.3 Liver Function 09/14/24 Range/Units 23:00 Total Bilirubin 0.7 (0.0-1.0) mg/dL AST 30 (5-37) U/L ALT 24 (0-40) U/L Alkaline Phosphatase 52 (39-117) U/L Albumin 4.2 (3.5-5.0) g/dL Urine 09/14/24 Range/Units 23:39 Urine Color Dark Yellow Urine Appearance Clear Urine pH 6.5 (5.0-9.0) Ur Specific [place] >= 1.030 H (1.005-1.025) Urine Protein Trace (Neg-Trace) mg/dL Urine Glucose (UA) Negative (Negative) mg/dL Abdomen CT scan report/results: report reviewed and image reviewed CT scan - pelvis: report reviewed and image reviewed Additional studies: Laboratory Results WBC 13.3 X10*3/uL (4.8-10.8) H 09/14/24 23:00 RBC 4.43 X10*6/uL (4.60-5.80) L 09/14/24 23:00 Hgb 13.9 g/dl (14.0-18.0) L 09/14/24 23:00 Hct 39.2 % (42.0-52.0) L 09/14/24 23:00 MCV 88.5 fL (80.0-98.0) 09/14/24 23:00 MCH 31.4 pg (27.0-33.0) 09/14/24 23:00 MCHC 35.5 g/dl (31.0-36.0) 09/14/24 23:00 RDW 12.5 % (11.0-16.0) 09/14/24 23:00 Plt Count 559 X10*3/uL (160-400) H 09/14/24 23:00 MPV 9.4 fL (9.4-12.4) 09/14/24 23:00 Immature Gran % (Auto) 0.5 % (0.0-0.4) H 09/14/24 23:00 Neut % (Auto) 90.7 % (45-73) H 09/14/24 23:00 Lymph % (Auto) 5.0 % (20-40) L 09/14/24 23:00 [place] % (Auto) 2.9 % (2-11) 09/14/24 23:00 Eos % (Auto) 0.2 % (0-4) 09/14/24 23:00 Baso % (Auto) 0.7 % (0-2) 09/14/24 23:00 Lymph # (Auto) 0.7 X10*3/uL (1.2-4.9) L 09/14/24 23:00 [place] # (Auto) 0.4 X10*3/uL (0.1-1.2) 09/14/24 23:00 Eos # (Auto) 0.0 X10*3/uL (0.0-0.4) 09/14/24 23:00 Baso # (Auto) 0.1 X10*3/uL (0.0-0.2) 09/14/24 23:00 Abs Immat Gran (auto) 0.07 X10*3/uL (0.00-0.03) H 09/14/24 23:00 Absolute Neuts (auto) 12.1 x10*3/uL (2.0-8.3) H 09/14/24 23:00 Absolute Nucleated RBC 0.000 X10*3/uL (0.0-0.012) 09/14/24 23:00 Nucleated RBC % (auto) 0.0 /100WBC (0.0-0.2) 09/14/24 23:00 Smear Tech's Comments VERIFIED 09/14/24 23:00 Sodium 142 mmol/L (135-145) 09/14/24 23:00 Potassium 4.2 mmol/L (3.3-5.1) 09/14/24 23:00 Chloride 106 mmol/L (96-108) 09/14/24 23:00 Carbon Dioxide 23 mmol/L (22-29) 09/14/24 23:00 Anion Gap 17 (12-20) 09/14/24 23:00 BUN 19 mg/dL (9-16) H 09/14/24 23:00 Creatinine 0.88 mg/dL (0.5-1.4) 09/14/24 23:00 Estim Creat Clear Calc 123.5 09/14/24 23:00 Estimated GFR > 60 09/14/24 23:00 Random Glucose 137 mg/dL (60-115) H 09/14/24 23:00 Calcium 9.3 mg/dL (8.4-10.2) 09/14/24 23:00 Total Bilirubin 0.7 mg/dL (0.0-1.0) 09/14/24 23:00 AST 30 U/L (5-37) 09/14/24 23:00 ALT 24 U/L (0-40) 09/14/24 23:00 Alkaline Phosphatase 52 U/L (39-117) 09/14/24 23:00 Total Protein 7.7 g/dL (6.5-8.0) 09/14/24 23:00 Albumin 4.2 g/dL (3.5-5.0) 09/14/24 23:00 Lipase 11 U/L (8-78) 09/14/24 23:00 Urine Color Dark Yellow 09/14/24 23:39 Urine Appearance Clear 09/14/24 23:39 Urine pH 6.5 (5.0-9.0) 09/14/24 23:39 Ur Specific [place] >= 1.030 (1.005-1.025) H 09/14/24 23:39 Urine Protein Trace mg/dL (Neg-Trace) 09/14/24 23:39 Urine Glucose (UA) Negative mg/dL (Negative) 09/14/24 23:39 Urine Ketones Trace mg/dL (Negative) 09/14/24 23:39 Urine Blood Negative (Negative) 09/14/24 23:39 Urine Nitrite Negative (Negative) 09/14/24 23:39 Ur Leukocyte Esterase Negative (Negative) 09/14/24 23:39 Influenza Type A (PCR) NEGATIVE (Negative) 09/14/24 23:00 Influenza Type B (PCR) NEGATIVE (Negative) 09/14/24 23:00 RSV RNA Qual (PCR) NEGATIVE (Negative) 09/14/24 23:00 SARS-CoV-2 RNA (RT-PCR) NEGATIVE (Negative) 09/14/24 23:00 Assessment and Plan (1) Acute appendicitis: Status: Acute He came to the ER overnight because of abdominal pain with nausea and vomiting. I have reviewed his CAT scan. This does show what appears to be an edematous appendix along with franck appendiceal inflammatory changes consistent with acute appendicitis. There were no appendicoliths noted. He has some leukocytosis I explained to him the option of proceeding with appendectomy versus antibiotic treatment. I explained the technique of laparoscopic appendectomy with possible conversion to open. I reviewed the risks of this procedure including but not limited to bleeding, infections, staple line leak, bowel injury, inherent risks of anesthesia, as well as the benefits and alternatives. He said that he would rather go ahead with the appendectomy. He will be admitted and will be started on IV Zosyn. We will proceed with laparoscopic appendectomy later today. His significant other was with him during the discussion. He is overall exam is otherwise benign and he is not toxic looking. Quality Stroke Does the patient have a stroke diagnosis?: No VTE Prior VTE?: No VTE Risk Level:: Medical - moderate - high VTE Device Contraindication: N/A - Device Ordered VTE Drug Contraindication: N/A - Med Ordered Procedures Date of Service Date of Service: 09/17/24
[2024-09-15] MEDS: Lactated Ringers 1,000 ML 80 ML IVCONT ×3 (05:50→23:35)
[2024-09-15] MEDS: Acetaminophen 325 MG TABLET 650 MG PO (05:57)
--- NOTE | 2024-09-15 07:18 | PC.NURSE ---
Report called to PENG Hale in [place]
--- NOTE | 2024-09-15 07:44 | P.PNGS_ITS ---
Subjective Subjective Date of Service: 09/15/24 Interval history: Patient continues to report abdominal discomfort in the right lower quadrant. Nausea is improved. Physical Exam 2 Vital Signs: Vital Signs: Last Vital Signs Temp 97.0 F 09/15/24 04:32 Pulse 76 09/15/24 04:32 Resp 12 09/15/24 04:32 BP 110/74 09/15/24 04:32 Pulse Ox 96 09/15/24 04:32 O2 Del Method Room Air 09/15/24 04:32 BMI result Body Mass Index 29.3 Const: General: no acute distress Nutritional Appearance: well nourished Orientation/consciousness: patient oriented x3 Limitations: no limitations Resp: Effort & Inspection: normal respiratory effort, no audible wheezes, no cough and no respiratory distress GI: Palpation (GI): Soft to palpation, Tenderness to palpation present (GI) in the RLQ and at McBurney's point, no guarding, not rigid and No hepatosplenomegaly present Neuro: General: patient oriented x3 Extrem: General: Yes no clubbing, cyanosis or edema Objective Data Active Medications Acetaminophen (Acetaminophen 325 Mg Tablet) 650 mg PO Q6H PRN PRN Reason: Pain, Mild 1-3,fever,headache Last Admin: 09/15/24 05:57 Dose: 650 mg Documented By: HAFSA Calcium Carbonate (Calcium Carbonate 750 Mg Tab.Chew) 750 mg PO Q4H PRN PRN Reason: Heartburn Clonazepam (Clonazepam 1 Mg Tablet) 1 mg PO TID PRN PRN Reason: anxiety Lactated Ringer's (Lr) 1,000 mls @ 80 mls/hr IVCONT .[id number] AYANA Last Admin: 09/15/24 05:50 Dose: 80 mls/hr Documented By: HAFSA Piperacillin Sod/Tazobactam (Sod 3.375 gm/ Sodium Chloride) 50 mls @ 100 mls/hr IV Q6H AYANA Losartan Potassium (Losartan Potassium 50 Mg Tablet) 100 mg PO DAILY AYANA; Protocol Magnesium Hydroxide (Milk Of Magnesia 30 Ml Oral.Susp) 30 ml PO DAILY PRN PRN Reason: Constipation Melatonin (Melatonin 3 Mg Tablet) 6 mg PO BEDTIME PRN PRN Reason: Insomnia Morphine Sulfate (Morphine Sulfate 4 Mg/Ml Cartridge) 3 mg IVPUSH Q3H PRN; Protocol PRN Reason: pain, severe Ondansetron HCl (Ondansetron Hcl 4 Mg/2 Ml Vial) 4 mg IVPUSH Q6H PRN PRN Reason: nausea Sodium Chloride (0.9 % Sodium Chloride Flush 3 Ml Syringe) 3 ml IVFLUSH QSHIFT [facility] Labs 09/14/24 23:00 09/14/24 23:00 Labs: Laboratory Results - last 24 hr 09/14/24 09/14/24 23:00 23:39 MCV 88.5 MCH 31.4 MCHC 35.5 RDW 12.5 Plt Count 559 H MPV 9.4 Immature Gran % (Auto) 0.5 H Neut % (Auto) 90.7 H Lymph % (Auto) 5.0 L [place] % (Auto) 2.9 Eos % (Auto) 0.2 Baso % (Auto) 0.7 Lymph # (Auto) 0.7 L [place] # (Auto) 0.4 Eos # (Auto) 0.0 Baso # (Auto) 0.1 Abs Immat Gran (auto) 0.07 H Absolute Neuts (auto) 12.1 H Absolute Nucleated RBC 0.000 Nucleated RBC % (auto) 0.0 Smear Tech's Comments VERIFIED Anion Gap 17 Estim Creat Clear Calc 123.5 Estimated GFR > 60 Random Glucose 137 H Calcium 9.3 Total Bilirubin 0.7 AST 30 ALT 24 Alkaline Phosphatase 52 Total Protein 7.7 Albumin 4.2 Lipase 11 Urine Color Dark Yellow Urine Appearance Clear Urine pH 6.5 Ur Specific [place] >= 1.030 H Urine Protein Trace Urine Glucose (UA) Negative Urine Ketones Trace Urine Blood Negative Urine Nitrite Negative Ur Leukocyte Esterase Negative Influenza Type A (PCR) NEGATIVE Influenza Type B (PCR) NEGATIVE RSV RNA Qual (PCR) NEGATIVE SARS-CoV-2 RNA (RT-PCR) NEGATIVE Procedures Date of Service Date of Service: 09/15/24 Progress Note: A&P Assessment and plan (1) Acute appendicitis: Status: Acute Plan 44-year-old male patient presenting with 24 hour history of abdominal pain beginning in the epigastric region and radiating to the right lower quadrant. Workup revealed tenderness in the right lower quadrant. WBC was elevated at 13.3. CT abdomen and pelvis reveals a thickened non perforated appendix consistent with acute appendicitis. I reviewed the procedure, risks and alternatives in detail and he consents to a laparoscopic or possible open appendectomy. He has been added onto the operative schedule for today. He is currently on Zosyn. Time Spent With Patient Time: Total time managing care of this patient today ____ minutes. Quality Stroke Does the patient have a stroke diagnosis?: No VTE Prior VTE?: No VTE Risk Level:: Medical - moderate - high VTE Device Contraindication: N/A - Device Ordered VTE Drug Contraindication: N/A - Med Ordered
--- NOTE | 2024-09-15 08:40 | P.CONAN_ITS ---
HPI - Anesthesia Eval Consult details Narrative: 44 yo M admitted with acute appendicitis PMFSH Active Problems Active Problems: All Active Problems Acute appendicitis (Acute) Hypertension (Acute) Hyperlipidemia (Acute) Anxiety (Acute) Internal derangement of left knee (Acute) Past Medical History Medical History Anxiety Hypertension Hyperlipidemia Family History Family history of problems with anesthesia: No Surgical History Surgical History History of inguinal hernia repair History of Problems with Anesthesia: No Social History Social History Alcohol intake: current Alcohol intake frequency: a few times a week Patient Tobacco Use Status: Never used Tobacco Smoked in Last 30 Days: No Use of substances other than those prescribed or required for medical reasons: No Advance Directives: No Nutrition Risks: No Nutritional Risk Current occupational status: disabled Current occupation: [employer] Allergies Allergy/AdvReac Type Severity Reaction Status Date / Time No Known Allergies Allergy Verified 09/14/24 22:39 [No Known Allergies*] Active Medications: Current Medications Acetaminophen (Acetaminophen 325 Mg Tablet) 650 mg PO Q6H PRN PRN Reason: Pain, Mild 1-3,fever,headache Last Admin: 09/15/24 05:57 Dose: 650 mg Calcium Carbonate (Calcium Carbonate 750 Mg Tab.Chew) 750 mg PO Q4H PRN PRN Reason: Heartburn Clonazepam (Clonazepam 1 Mg Tablet) 1 mg PO TID PRN PRN Reason: anxiety Lactated Ringer's (Lr) 1,000 mls @ 80 mls/hr IVCONT .[id number] [facility] Last Admin: 09/15/24 05:50 Dose: 80 mls/hr Piperacillin Sod/Tazobactam (Sod 3.375 gm/ Sodium Chloride) 50 mls @ 100 mls/hr IV Q6H [facility] Last Infusion: 09/15/24 08:39 Dose: Infused Losartan Potassium (Losartan Potassium 50 Mg Tablet) 100 mg PO DAILY [facility]; Protocol Last Admin: 09/15/24 08:00 Dose: Not Given Magnesium Hydroxide (Milk Of Magnesia 30 Ml Oral.Susp) 30 ml PO DAILY PRN PRN Reason: Constipation Melatonin (Melatonin 3 Mg Tablet) 6 mg PO BEDTIME PRN PRN Reason: Insomnia Morphine Sulfate (Morphine Sulfate 4 Mg/Ml Cartridge) 3 mg IVPUSH Q3H PRN; Protocol PRN Reason: pain, severe Ondansetron HCl (Ondansetron Hcl 4 Mg/2 Ml Vial) 4 mg IVPUSH Q6H PRN PRN Reason: nausea Sodium Chloride (0.9 % Sodium Chloride Flush 3 Ml Syringe) [facility] Last Admin: 09/15/24 07:58 Dose: Not Given Home Medications ?Medication ?Instructions ?Recorded ?Confirmed ?Last Taken ?Type fluoxetine 40 mg capsule 40 mg PO DAILY 10/16/21 09/15/24 Unknown History hydroxyzine pamoate 25 mg capsule 25 mg PO TID PRN Anxiety 10/16/21 09/15/24 Unknown History clonazepam 0.5 mg tablet 0.5 mg PO TID PRN Anxiety 09/15/24 09/15/24 Unknown History fenofibrate 160 mg tablet 160 mg PO DAILY 09/15/24 09/15/24 Unknown History losartan 100 1 tab PO DAILY 09/15/24 09/15/24 Unknown History mg-hydrochlorothiazide 12.5 mg tablet Exam Exam Date and Time: 09/15/24 0850 Height,Weight and Vital Signs: Height 5 ft 11 in Weight 95.3 kg Last Vital Signs Temp 98.7 F 09/15/24 07:54 Pulse 96 09/15/24 07:54 Resp 18 09/15/24 07:54 BP 120/75 09/15/24 07:54 Pulse Ox 96 09/15/24 07:54 O2 Del Method Room Air 09/15/24 07:54 Pertinent Lab Results Pertinent Lab Results: Laboratory Tests 09/14/24 09/14/24 23:00 23:39 WBC 13.3 H RBC 4.43 L Hgb 13.9 L Hct 39.2 L MCV 88.5 MCH 31.4 MCHC 35.5 RDW 12.5 Plt Count 559 H MPV 9.4 Immature Gran % (Auto) 0.5 H Neut % (Auto) 90.7 H Lymph % (Auto) 5.0 L [place] % (Auto) 2.9 Eos % (Auto) 0.2 Baso % (Auto) 0.7 Lymph # (Auto) 0.7 L [place] # (Auto) 0.4 Eos # (Auto) 0.0 Baso # (Auto) 0.1 Abs Immat Gran (auto) 0.07 H Absolute Neuts (auto) 12.1 H Absolute Nucleated RBC 0.000 Nucleated RBC % (auto) 0.0 Smear Tech's Comments VERIFIED Sodium 142 Potassium 4.2 Chloride 106 Carbon Dioxide 23 Anion Gap 17 BUN 19 H Creatinine 0.88 Estim Creat Clear Calc 123.5 Estimated GFR > 60 Random Glucose 137 H Calcium 9.3 Total Bilirubin 0.7 AST 30 ALT 24 Alkaline Phosphatase 52 Total Protein 7.7 Albumin 4.2 Lipase 11 Urine Color Dark Yellow Urine Appearance Clear Urine pH 6.5 Ur Specific [place] >= 1.030 H Urine Protein Trace Urine Glucose (UA) Negative Urine Ketones Trace Urine Blood Negative Urine Nitrite Negative Ur Leukocyte Esterase Negative Influenza Type A (PCR) NEGATIVE Influenza Type B (PCR) NEGATIVE RSV RNA Qual (PCR) NEGATIVE SARS-CoV-2 RNA (RT-PCR) NEGATIVE Airway Mallampati Class: II TM Dist: >3cm Neck ROM: Full Loose/Missing/Broken Teeth: No (patient denies any loose or broken teeth) Heart: S1S2 Lungs: CTAB Assessment and Plan Assessment Anesthesia Assessment: Anesthesia Plan Discussed and Chart Reviewed Final Anesthetic Review Family History of Problems with Anesthesia: No History of Problems with Anesthesia: No NPO: Yes ASA Class: II and Emergency Final Preanesthetic Review: No Changes in Pt Med Stat, Meds/Allgs Chart Reviewed, Consent Obtained/Reviewed and Anes Risks/Benef Reviewed Patient Risk: Low Procedure Risk: Low Anesthetic Plan Anesthetic Plan: GA and Agree w/ Assess. and Plan Disposition: Standard PACU
--- NOTE | 2024-09-15 09:02 | PHA.MEDREC ---
Pharmacy Consult ? Medication Reconciliation Pharmacy has completed the medication reconciliation. Spoke with patients significant other in overflow unit. SO confirmed patient to no longer be on oxcarbazepine, zaleplon, abilify and welbutrin. SO claims patient tries to take very minimal medication due to drowziness.
--- NOTE | 2024-09-15 09:55 | P.OP_ITS ---
Operative Note Operative Note Date of Service: 09/15/24 Narrative: Preoperative diagnosis: Acute appendicitis Postoperative diagnosis: Same Procedure: Laparoscopic appendectomy Surgeon: Kaleb Shepard MD Special Education Resource Room Teacher: None Anesthesia: General endotracheal Indications for procedure: 44-year-old male patient presenting with complaints of abdominal pain beginning in the epigastric region and radiating to the right lower quadrant. Workup revealed an elevated WBC. CT abdomen and pelvis confirmed acute appendicitis. Operative findings: Acute appendicitis without perforation Specimen: Appendix Estimated blood loss: 2 mL Complications: None Procedure details: Patient was brought to the OR and placed in a supine position. After administering general anesthesia the patient's abdomen was prepped with ChloraPrep and draped in a sterile fashion. A surgical time-out was called and consent confirmed. Patient received preoperative antibiotics and Venodyne boots were in place. Local anesthesia consisting of 0.5% Sensorcaine without epinephrine was infiltrated in periumbilical region. A 5 mm incision was made below the umbilicus and carried down through subcutaneous tissue. A Veress needle was then inserted while elevating abdominal cavity with towel clips. After a positive drop test the abdomen was insufflated to a pressure of 15 mm of mercury. The Veress needle was removed and a 5 mm trocar inserted. The camera was then inserted in the abdomen explored. A 2nd 5 mm trocars placed in the lower midline. A 12 mm trocar was then placed in the left lower quadrant. The patient was then placed in a Trendelenburg position and rotated to the left. The appendix was identified in the right lower quadrant and brought up using blunt dissecting clamps. The mesentery of the appendix was then divided using the LigaSure. The appendiceal artery was cauterized and divided using the LigaSure. Dissection was continued down to the base of the cecum. An Endo-ALMA stapler with a purple reload was then used to divide the appendix at the base with the cecum. The appendix was then placed in Endo-Catch bag and brought out through the left lower quadrant incision. The abdomen was then irrigated with saline solution and suctioned dry. Wounds were checked for hemostasis. CO2 was then evacuated from the abdominal cavity and all trocars removed. Fascia was closed in the left lower quadrant incision using a [id number] 0 Polysorb suture. Skin was closed at all incisions using a subcuticular 4-0 Polysorb suture. Steri-Strips 2 x 2 gauze and Tegaderm were then applied. The patient tolerated the procedure well. Sponge, instrument, needle counts reported as correct. The patient was transferred to PACU in stable condition.
[2024-09-15] MEDS: HYDROmorphone HCl 0.5 MG/0.5 ML SYRINGE IVPUSH (10:25)
[2024-09-15] MEDS: oxyCODONE HCl Immed Release 5 MG TABLET PO (12:48)
[2024-09-15] MEDS: Morphine Sulfate 4 MG/ML CARTRIDGE 3 MG IVPUSH (19:34)
[2024-09-16] MEDS: oxyCODONE HCl Immed Release 5 MG TABLET PO ×2 (00:54→07:56)
[2024-09-16] MEDS: Piperacillin Sodium/Tazobactam 3.375 GM in 0.9 % Sodium Chloride 50 ML IV ×2 (00:58→07:57)
[2024-09-16 03:53] VITALS: BP 121/80; PULSE 92; RESP 18; TEMP 36.8; O2SAT 93
[2024-09-16] MEDS: Morphine Sulfate 4 MG/ML CARTRIDGE 3 MG IVPUSH (04:03)
[2024-09-16 07:39] VITALS: BP 141/79; PULSE 78; RESP 17; TEMP 36.2; O2SAT 94
--- NOTE | 2024-09-16 07:47 | PM.PNGS ---
Subjective Subjective Date of Service: 09/16/24 Interval history: Patient reports mainly gas pain today, passing some flatus. Denies nausea or vomiting. He was able to tolerate a diet last evening. Physical Exam Vital Signs: Vital Signs: Last Vital Signs Temp 97.2 F 09/16/24 07:39 Pulse 78 09/16/24 07:39 Resp 17 09/16/24 07:39 BP 141/79 H 09/16/24 07:39 Pulse Ox 94 09/16/24 07:39 O2 Del Method Room Air 09/16/24 07:39 O2 Flow Rate 2 09/15/24 10:41 BMI result Body Mass Index 31.3 Const: General: no acute distress Nutritional Appearance: well nourished Orientation/consciousness: patient oriented x3 Resp: Effort & Inspection: normal respiratory effort GI: Other: Trocar incisions are clean, dry and intact. Skin: Other: Warm, dry, no rashes Neuro: General: patient oriented x3 Extrem: General: No edema Objective Data Active Medications Acetaminophen (Acetaminophen 325 Mg Tablet) 650 mg PO Q6H PRN PRN Reason: Pain, Mild 1-3,fever,headache Last Admin: 09/15/24 05:57 Dose: 650 mg Documented By: HAFSA Al Hydroxide/Mg Hydroxide (Magnesium Hydrox/Alum Hydrox 30 Ml Oral.Susp) 30 ml PO Q4H PRN PRN Reason: Heartburn, gas Last Admin: 09/15/24 15:58 Dose: 30 ml Documented By: ALESHA Calcium Carbonate (Calcium Carbonate 750 Mg Tab.Chew) 750 mg PO Q4H PRN PRN Reason: Heartburn Clonazepam (Clonazepam 1 Mg Tablet) 1 mg PO TID PRN PRN Reason: anxiety Lactated Ringer's (Lr) 1,000 mls @ 80 mls/hr IVCONT .[id number] [facility] Last Admin: 09/16/24 04:31 Dose: Not Given Documented By: HARLEEN Non-Admin Reason: IV Running Piperacillin Sod/Tazobactam (Sod 3.375 gm/ Sodium Chloride) 50 mls @ 100 mls/hr IV Q6H [facility] Last Infusion: 09/16/24 01:28 Dose: Infused Documented By: HARLEEN Losartan Potassium (Losartan Potassium 50 Mg Tablet) 100 mg PO DAILY [facility]; Protocol Last Admin: 09/15/24 08:00 Dose: Not Given Documented By: ALEXIA Non-Admin Reason: NPO Magnesium Hydroxide (Milk Of Magnesia 30 Ml Oral.Susp) 30 ml PO DAILY PRN PRN Reason: Constipation Melatonin (Melatonin 3 Mg Tablet) 6 mg PO BEDTIME PRN PRN Reason: Insomnia Morphine Sulfate (Morphine Sulfate 4 Mg/Ml Cartridge) 3 mg IVPUSH Q3H PRN; Protocol PRN Reason: pain, severe Last Admin: 09/16/24 04:03 Dose: 3 mg Documented By: HARLEEN Ondansetron HCl (Ondansetron Hcl 4 Mg/2 Ml Vial) 4 mg IVPUSH Q6H PRN PRN Reason: nausea Oxycodone HCl (Oxycodone Hcl Immed Release 5 Mg Tablet) 5 mg PO Q4H PRN PRN Reason: Pain, Moderate(Pain Scale 4-6) Last Admin: 09/16/24 00:54 Dose: 5 mg Documented By: HARLEEN Sodium Chloride (0.9 % Sodium Chloride Flush 3 Ml Syringe) 3 ml IVFSH [facility] Last Admin: 09/16/24 00:14 Dose: Not Given Documented By: HARLEEN Non-Admin Reason: IV Running Labs 09/14/24 23:00 09/14/24 23:00 Procedures Date of Service Date of Service: 09/16/24 Progress Note: A&P Assessment and plan (1) Acute appendicitis: Status: Acute Plan Pod 1 following laparoscopic appendectomy for acute appendicitis. He tolerated the procedure well and remains hemodynamically stable. He was able to tolerate a regular diet and ambulate in the hallways. He is ready for discharge to home and should follow up in the office in approximately 1 week. Should avoid lifting greater than 10 lb for 2 weeks. Time Spent With Patient Time: Total time managing care of this patient today ____ minutes. Quality Stroke Does the patient have a stroke diagnosis?: No VTE Prior VTE?: No VTE Risk Level:: Medical - moderate - high VTE Device Contraindication: N/A - Device Ordered VTE Drug Contraindication: N/A - Med Ordered
[2024-09-16] MEDS: Losartan Potassium 50 MG TABLET 100 MG PO (07:56)
[2024-09-16] MEDS: 0.9 % Sodium Chloride Flush 3 ML SYRINGE IVFLUSH (07:56)
--- NOTE | 2024-09-16 08:29 | HO.POSTANES ---
Post Anesthesia Evaluation Post Anesthesia Evaluation Date of Service: 09/16/24 Vital Signs: Vital Signs Temp Pulse Resp BP Pulse Ox O2 Del Method 09/16/24 07:39 97.2 F 78 17 141/79 H 94 Room Air 09/16/24 03:53 98.3 F 92 18 121/80 93 Room Air 09/15/24 23:30 98.0 F 85 18 118/70 95 Room Air Anesthesia: General Endotracheal-GETA Mental Status: Awake Pain Control: Satisfactory Nausea/Vomiting: None Hydration: Adequate Anesthesia-Related Issues: No Anes. Related Issues
--- NOTE | 2024-09-16 09:24 | MHC.CM.PN ---
IMM delivered. Patient from home w/ . Functionally independent. Denies use of DME or services. PCP Honey Kaba MD No HCP. CM provided education and offered assistance. Patient declined. DP: Medically cleared for dc home self care. at bedside to transport. RN aware.
--- NOTE | 2024-09-16 12:32 | P.DS_ITS ---
DS: Providers Provider Date of Service: 09/16/24 Date of admission: 09/15/24 10:03 Date of discharge: 09/16/24 Primary care physician: Honey Kaba MD Attending physician on admission: Wallace Tse Attending physician on discharge: Kaleb Shepard DS: Diagnosis Discharge Diagnosis (1) Acute appendicitis: Status: Acute DS: Summary Hospital Course Hospital Course: HPI AT ADMISSION: Alexander Garay is a 44 year old male here in the ER for abdominal pain. He says that he had breakfast this morning and right after that, he started to have multiple episodes of loose stools. He says he had some periumbilical pain which persisted throughout the day. He also had some nausea and vomiting. Because of all these symptoms, he came to the emergency room. He denies any fever or chills. He has a history of hypertension and anxiety/depression. He has a history of right inguinal hernia repair more than 20 years ago. He also had surgery for gynecomastia around that time as well. CAT scan shows what appears to be an edematous appendix along with franck appendiceal inflammatory changes consistent with acute appendicitis, no appendicoliths noted. Mild leukocytosis. HOSPITAL COURSE: The patient was admitted to the surgical service for further treatment of the acute appendicitis. He was started on IVF and IV zosyn. He elected to proceed with laparoscopic appendectomy. He was added onto the OR schedule for that day. On 09/15/24, a laparoscopic appendectomy was performed by Dr. Shepard without complication. The patient tolerated the procedure well. He had an uncomplicated recovery course. On POD #1, he felt well and was tolerating a solid diet without nausea or vomiting, had good pain control and was ambulating without difficulty. He was hemodynamically stable. His abdomen was benign with appropriate post op tenderness and clean and intact dressings. He felt ready for discharge. He was discharged to home on 09/16/24 in stable condition. He is to follow up in the office in 1 week. Status at Discharge Functional status at discharge: independent ambulation Overall status at discharge: patient is progressing back to baseline Time Attestation Discharge Coordination Time (in mins): 30 Quality: Safe Use of Opioids Does Pt have an Active Cancer Diagnosis on the Problem List?: No Quality: Stroke Does the patient have a stroke diagnosis?: No Physical Exam Vital Signs: Vital Signs: Last Vital Signs Temp 97.2 F 09/16/24 07:39 Pulse 78 09/16/24 07:39 Resp 17 09/16/24 07:39 BP 141/79 H 09/16/24 07:39 Pulse Ox 94 09/16/24 07:39 O2 Del Method Room Air 09/16/24 07:39 O2 Flow Rate 2 09/15/24 10:41 BMI result Body Mass Index 31.3 Const: General: comfortable, no acute distress and alert Orientation/consciousness: patient oriented x3 Resp: Effort & Inspection: normal respiratory effort GI: Inspection: No distended and Yes incision (dressings clean and intact ) Palpation (GI): Soft to palpation, Tenderness to palpation present (GI) (mild incisional) and no guarding Skin: General skin exam: no rashes or lesions noted Neuro: General: patient oriented x3 and moves all extremities DS: Data Data Completed and Pending Pending studies at discharge: Pending at discharge 09/15/24 09:33 Surgical [PTH] Routine Discharge Plan Discharge Anticipated Discharge Date/Time: 09/16/24 07:41 Patient Disposition: Home, Self-Care Discharge Diagnosis: acute appendicitis Referrals: Honey Kaba MD [Primary Care Provider] - 1 Week Kaleb Shepard MD [Physician] - 1 Week Discharge Medications: New docusate sodium [Colace] 100 mg capsule 100 mg PO BID Qty: 30 0RF oxycodone 5 mg tablet 5 mg PO Q4H PRN (Reason: pain (scale score 7-10)) Qty: 20 0RF Rx Instructions: Partial Fill upon patient request. Continued acetaminophen 500 mg tablet 500 mg PO Q6H PRN (Reason: fever or pain) Qty: 14 0RF clonazepam 0.5 mg tablet 0.5 mg PO TID PRN (Reason: Anxiety) fenofibrate 160 mg tablet 160 mg PO DAILY losartan-hydrochlorothiazide 100-12.5 mg tablet 1 tab PO DAILY hydroxyzine pamoate 25 mg capsule 25 mg PO TID PRN (Reason: Anxiety) fluoxetine 40 mg capsule 40 mg PO DAILY Discharge Orders: Discharge Order (Routine); Ordered 09/16/24 Ordered By: Kaleb Shepard Diet: Advance to usual diet Activity on Discharge: No heavy lifting Stand Alone Forms: Patient Portal Discharge page Print Language: Mauritian Activity Restrictions/Additional Instructions: If the incision area is tender, you may apply an ice pack for short intervals (No more than 20 minutes on, followed by at least 20 minutes off). Do not apply heat. Do not use creams, lotions, or topical antibiotics. Ok to shower. Remove clear dressings 3 days following your procedure. You have steri strips (small white cloth strips) covering your incision- these will fall off ~1 week. No heavy lifting (>10lbs) or strenuous activity! Take Tylenol Extra-strength 1-2 tabs every 6 hours for the first day, then as needed. Oxycodone every 6-8 hours as needed for pain. Colace 100 mg every day as needed for constipation. Follow up in office with Dr. Shepard in 1 week. ([phone]) Call Your Doctor If: -Your temperature exceeds 101.5? F -You experience excessive pain or swelling -You have an unexpected reaction to medication -You have excessive bleeding -You experience continued vomiting/nausea -Your incision begins to separate -Your incision shows signs of infection such as increased redness, swelling, excessive pain, drainage (light blood or clear fluid is normal) or heat Care Plan Goals: Return to baseline health and resume normal activities following recovery period. Health Concerns: Abdominal pain right lower quadrant Plan of Treatment: Laparoscopic appendectomy on 09/15/2024 Assessment: Acute appendicitis without perforation Discharge Date/Time: 09/16/24 09:55
== END 2024-09-16 09:55 | disposition home or self-care (01) | DRG 399 ==
LOC: HO.ED 09-15 02:01 → HO.EDOVER 09-15 07:27 → HO.SSS 09-15 07:30 → HO.S3 09-15 10:03
PROVIDERS: Surgery; Admitting Provider Surgery; Emergency Provider Internal Medicine; PCP Internal Medicine; Visit Provider Surgery
PROC: 0DTJ4ZZ Resection of Appendix, Percutaneous Endoscopic Approach (ICD-10-PCS; CPT 44970; principal; 2024-09-15 08:30)
DX: K35.80 Unspecified acute appendicitis (principal); E78.5 Hyperlipidemia, unspecified; Z20.822 Contact with and (suspected) exposure to COVID-19; Z87.891 Personal history of nicotine dependence; Z79.899 Other long term (current) drug therapy
CPT/HCPCS: 0241U; 36415; 74177; 80053; 81003; 83690; 85025; 88304; 99285; J0330; J1171; J2003; J2270; J2405; J2543; J2704; J2795; J3010; J7120; Q9967

== ENCOUNTER → 2024-09-15 00:10 | Outpatient (BNV) | payer MEDICARE, MEDICAID, SELFPAY | PROVIDERS: Emergency Provider Internal Medicine; PCP Internal Medicine; Visit Provider Radiology Diagnostic Radiology | DX: K35.890 Other acute appendicitis without perforation or gangrene (principal) | CPT/HCPCS: 74177 ==

== ENCOUNTER → 2024-09-15 07:30 | Outpatient (BNV) | payer MEDICARE, MEDICAID, SELFPAY | PROVIDERS: Emergency Provider Internal Medicine; PCP Internal Medicine; Visit Provider Surgery | DX: K35.80 Unspecified acute appendicitis (principal) | CPT/HCPCS: 44970; 99024; 99222; 99499 ==

== ENCOUNTER 2024-09-23 12:58 | Outpatient (AMB) | payer MEDICARE, MEDICAID, SELFPAY ==
--- NOTE | 2024-09-23 13:00 | MHC.OFFVIS ---
Vital Signs 09/23/24 13:09 Height 5 ft 11 in Weight 209 lb BMI 29.1 BP 140/84 H Blood Pressure Location Lt brachial Position Sitting Pulse 117 H Intake Visit Reasons: s/p laparoscopic appendectomy Intake Note: Patient is seen in office for post op assessment post laparoscopic appendectomy. Pt c/o:first couple of days post surgery had diarrhea, stop taking it and stool became harder, admits to sore and tender, unable to sleep due to discomfort and postioning Emergency Vehicle Dispatcher Required: No Accompanied by: Self / Same As Patient Allergies No Known Allergies [No Known Allergies*] Allergy (Verified 09/23/24 13:08) HPI Comments Details: The patient reports constipation alternating with diarrhea after taking stool softener. Feels he is mainly having gas pain. [facility] Medical History Acute appendicitis Anxiety Hypertension Hyperlipidemia Surgical History History of laparoscopic appendectomy (09/15/24) History of inguinal hernia repair Social History Household Members: Spouse Housing: Apartment Alcohol intake: current Alcohol intake frequency: a few times a week Patient Tobacco Use Status: Former Tobacco user Tobacco use type: Cigarette service: No Current occupational status: disabled Current occupation: [employer] handed Physical Exam Vital Signs: Last Vital Signs Pulse 117 H 09/23/24 13:09 BP 140/84 H 09/23/24 13:09 BMI result Body Mass Index 29.1 Const General: no acute distress Nutritional Appearance: well nourished Orientation/consciousness: patient oriented x3 Resp Effort & Inspection: normal respiratory effort GI Other: Trocar incisions are well healed without erythema and no palpable hernia. Dressings were removed. Steri-Strips remain intact. Neuro General: patient oriented x3 Extrem Other: No edema Assessment & Plan Assessment & Plan (1) Acute appendicitis: Code(s): K35.80 - Unspecified acute appendicitis Category: Medical Qualifiers: Acute appendicitis type: with localized peritonitis Appendicitis gangrene presence: without gangrene Appendicitis perforation presence: without perforation Appendicitis abscess presence: without abscess Qualified Code(s): K35.30 - Acute appendicitis with localized peritonitis, without perforation or gangrene Plan 44-year-old male patient returning 9 days following laparoscopic appendectomy for acute appendicitis. His wounds are clean and intact without redness or discharge. I recommended stopping the narcotic which may be causing the bowel changes in gas pain. He should follow up as needed. Coding Level of Care Code Global (48178) Diagnoses Acute appendicitis with localized peritonitis, without perforation, abscess, or gangrene K35.30 Acute appendicitis type: with localized peritonitis Appendicitis gangrene presence: without gangrene Appendicitis perforation presence: without perforation Appendicitis abscess presence: without abscess
[2024-09-23 13:09] VITALS: BP 140/84; PULSE 117; BMI 29.1
== END 2024-09-23 13:33 | disposition home or self-care (01) ==
PROVIDERS: PCP Internal Medicine; Visit Provider Surgery
DX: K35.30 Acute appendicitis with localized peritonitis, without perforation or gangrene (principal)
CPT/HCPCS: 99024

== ENCOUNTER → 2024-09-23 12:58 | Outpatient (BNVA) | payer MEDICARE, MEDICAID, SELFPAY | PROVIDERS: PCP Internal Medicine; Visit Provider Surgery | DX: K35.30 Acute appendicitis with localized peritonitis, without perforation or gangrene (principal) | CPT/HCPCS: 99212 ==

== ENCOUNTER 2025-08-26 11:46 | Day surgery (SDC) | payer MEDICARE, MEDICAID, SELFPAY ==
[2025-08-26 12:05] VITALS: BMI 29.8
[2025-08-26] MEDS: Lactated Ringers 1,000 ML 80 ML IVCONT (12:12)
[2025-08-26 12:13] VITALS: BP 140/89; PULSE 92; RESP 18; TEMP 36.7; O2SAT 97
--- NOTE | 2025-08-26 12:41 | HO.ANESPROP2 ---
Documented by User: Sofi Danielson NP 08/26/25 12:41 HPI - Anesthesia Eval Consult details Narrative: 45 yr old male for colonoscopy PMF Active Problems Active Problems: All Active Problems Hypertension (Acute) Hyperlipidemia (Acute) Anxiety (Acute) Internal derangement of left knee (Acute) Past Medical History Medical History Acute appendicitis Anxiety Hypertension Hyperlipidemia Family History Family history of problems with anesthesia: No Surgical History Surgical History History of laparoscopic appendectomy (09/15/24) History of inguinal hernia repair History of Problems with Anesthesia: No Social History Social History Household Members: Spouse Housing: Apartment Are you a primary animal caretaker supervisor to a significant other at home: No Do you presently have visiting nurse or other home services: No Alcohol intake: current Alcohol intake frequency: a few times a week Patient Tobacco Use Status: Former Tobacco user Tobacco use type: Cigarette Have you been hit, kicked, punched, or otherwise hurt by someone within the past year? If so, by whom?: No Are you DNR?: No Advance Directives: No Advance Directives Information Provided: Yes service: No Current occupational status: disabled Current occupation: [employer] Allergies Allergy/AdvReac Type Severity Reaction Status Date / Time No Known Allergies (No Known Allergy Verified 08/26/25 11:54 Allergies*) Active Medications: Current Medications Lactated Ringer's (Lr) 1,000 mls @ 80 mls/hr IVCONT .[id number] [facility] Last Admin: 08/26/25 12:12 Dose: 80 mls/hr Home Medications ?Medication ?Instructions ?Recorded ?Confirmed ?Last Taken ?Type fluoxetine 40 mg capsule 40 mg PO DAILY 10/16/21 08/26/25 Unknown History hydroxyzine pamoate 25 mg capsule 25 mg PO TID PRN Anxiety 10/16/21 08/26/25 Unknown History clonazepam 0.5 mg tablet 0.5 mg PO TID PRN Anxiety 09/15/24 08/26/25 Unknown History fenofibrate 160 mg tablet 160 mg PO DAILY 09/15/24 08/26/25 Unknown History losartan 100 1 tab PO DAILY 09/15/24 08/26/25 Unknown History mg-hydrochlorothiazide 12.5 mg tablet Exam Height,Weight and Vital Signs: Height 5 ft 11 in Weight 97 kg Last Vital Signs Temp 98.0 F 08/26/25 12:13 Pulse 92 08/26/25 12:13 Resp 18 08/26/25 12:13 BP 140/89 H 08/26/25 12:13 Pulse Ox 97 08/26/25 12:13 O2 Del Method Room Air 08/26/25 12:13 Assessment and Plan Final Anesthetic Review Family History of Problems with Anesthesia: No History of Problems with Anesthesia: No Documented by User: Sherif Mckee MD 08/26/25 12:50 PMFSH Past Medical History Medical History Acute appendicitis Anxiety Hypertension Hyperlipidemia Cognitive capacity: normal Functional capacity: independent ambulation Surgical History Surgical History History of laparoscopic appendectomy (09/15/24) History of inguinal hernia repair Social History Social History Household Members: Spouse Housing: Apartment Are you a primary animal caretaker supervisor to a significant other at home: No Do you presently have visiting nurse or other home services: No Alcohol intake: current Alcohol intake frequency: a few times a week Patient Tobacco Use Status: Former Tobacco user Tobacco use type: Cigarette Have you been hit, kicked, punched, or otherwise hurt by someone within the past year? If so, by whom?: No Are you DNR?: No Advance Directives: No Advance Directives Information Provided: Yes service: No Current occupational status: disabled Current occupation: Lt [employer] Meds Allergies Allergy/AdvReac Type Severity Reaction Status Date / Time No Known Allergies (No Known Allergy Verified 08/26/25 11:54 Allergies*) Home Medications ?Medication ?Instructions ?Recorded ?Confirmed ?Last Taken ?Type fluoxetine 40 mg capsule 40 mg PO DAILY 10/16/21 08/26/25 Unknown History hydroxyzine pamoate 25 mg capsule 25 mg PO TID PRN Anxiety 10/16/21 08/26/25 Unknown History clonazepam 0.5 mg tablet 0.5 mg PO TID PRN Anxiety 09/15/24 08/26/25 Unknown History fenofibrate 160 mg tablet 160 mg PO DAILY 09/15/24 08/26/25 Unknown History losartan 100 1 tab PO DAILY 09/15/24 08/26/25 Unknown History mg-hydrochlorothiazide 12.5 mg tablet Exam Exam Date and Time: 08/26/2025 Airway TM Dist: >3cm Neck ROM: Full Loose/Missing/Broken Teeth: No Heart: rrr Lungs: cta Other: normal Assessment and Plan Assessment Anesthesia Assessment: Anesthesia Plan Discussed Final Anesthetic Review NPO: Yes ASA Class: II Final Preanesthetic Review: No Changes in Pt Med Stat, Meds/Allgs Chart Reviewed, Consent Obtained/Reviewed and Anes Risks/Benef Reviewed Patient Risk: Low Procedure Risk: Low Anesthetic Plan Anesthetic Plan: MAC: Disposition: Standard PACU
[2025-08-26 14:00] VITALS: BP 100/65; PULSE 83; RESP 16; TEMP 36.6; O2SAT 94
[2025-08-26 14:06] VITALS: BP 107/68; PULSE 89; RESP 14; TEMP 36.6; O2SAT 95
--- NOTE | 2025-08-26 14:08 | P.BOP_ITS ---
Brief Operative Note Date of Service: 08/26/25 Pre-op diagnosis: Screening Post-op diagnosis: other (Diverticulosis, Internal hemorrhoids) Procedure: Colonoscopy to the cecum and TI Surgeon: Robb Ferrer MD Anesthesia: MAC Was an Compound Coating Machine Offbearer used for this Procedure?: No Estimated blood loss (mL): 0 Pathology: none sent Condition: stable Disposition: PACU
--- NOTE | 2025-08-26 23:54 | OP_ITS ---
DATE OF SERVICE: 08/26/2025 SURGEON: Robb Frerer MD INDICATIONS: The patient presents for evaluation of colorectal cancer screening. Full consent has been obtained from him for this, including risks of bleeding and perforation. PREOPERATIVE DIAGNOSIS: Colorectal cancer screening. POSTOPERATIVE DIAGNOSIS: PROCEDURE PERFORMED: Colonoscopy to cecum and terminal ileum. ESTIMATED BLOOD LOSS: COMPLICATIONS: ANESTHESIA: Medication used, monitored anesthesia care. ASSISTANTS: SPECIMENS: POSTOPERATIVE DIAGNOSES: Colorectal cancer screening, mild sigmoid diverticulosis, and small internal hemorrhoids. DESCRIPTION OF PROCEDURE: The patient was placed in the left lateral decubitus position. The digital rectal exam revealed no abnormalities. The Olympus video pediatric colonoscope was entered into the rectum and advanced easily to the cecum. Once in the cecum, I did identify normal-appearing cecal pouch with appendiceal orifice and a normal-appearing ileocecal valve. The terminal ileum was cannulated and appeared normal. The scope was withdrawn back in the colon. The entire cecum and ileocecal valve appeared normal. The scope was slowly withdrawn assessing all mucosal surfaces carefully. Preparation was excellent. I did not visualize any sign of polyps, colitis, nor angiodysplasia. There were occasional diverticulosis noted in the sigmoid colon. In the rectum, scope was retroflexed visualizing internal hemorrhoids, but no other pathology. The rectal mucosa appeared normal. The scope was straightened and withdrawn the patient. He tolerated the procedure well and was returned to the recovery area in stable condition. IMPRESSION: 1. Mild diverticulosis. 2. Internal hemorrhoids. PLAN: Given the negative colonoscopy in regard to polyps and no family history of colon cancer, I advised him that he would require a followup screening colonoscopy in 10 years. He will otherwise see me as needed. MD FERCHO Macario/ALEA / [phone]
== END 2025-08-26 14:23 | disposition home or self-care (01) ==
PROVIDERS: PCP Internal Medicine; Visit Provider Internal Medicine
PROC: 0DJD8ZZ Inspection of Lower Intestinal Tract, Via Natural or Artificial Opening Endoscopic (ICD-10-PCS; CPT 45378; principal; 2025-08-26 13:00)
DX: Z12.11 Encounter for screening for malignant neoplasm of colon (principal); K58.9 Irritable bowel syndrome, unspecified; K57.30 Diverticulosis of large intestine without perforation or abscess without bleeding; K64.8 Other hemorrhoids
CPT/HCPCS: G0121; J2003; J2704